=== PATIENT | female | born 1980 | race Caucasian/White ===

== ENCOUNTER 2016-09-25 19:54 | Inpatient (IN) ==
[2016-09-25] MEDS ORDERED: SODIUM CHLORIDE 0.9% 1,000 ML IV STA (20:28)
[2016-09-25] MEDS ORDERED: FLUMAZENIL 1 MG/10 ML VIAL IV STA (20:28)
[2016-09-25] MEDS ORDERED: NALOXONE 0.4 MG/ML VIAL IV PRN (20:28)
--- NOTE | 2016-09-25 20:38 | Emergency Department Note ---
Arrival - Arrival Chief Complaint: Seizure ED Nursing Triage Note: C/O Bystander called EMS for seizure that they witnessed at a store- Upon EMS arrival pt appears to be under the influence and still does at time of arrival here. Pt reports that she has a history of seizures that are controlled by Gabapentin at home. Pt denies any volunary alcohol or drug use, but states she got into a car with a stranger and she was given a energy drink of some kind and then reports that she started "acting crazy" Mode of Arrival: Stretcher Source: EMS Time Seen by Provider: 09/25/16 20:28 - History of Present Illness HPI Narrative: This lethargic poorly responsive white female presents with a history of being observed by bystanders to have a seizure at a convenience store. When the patient regained consciousness to the extent that she could give some history, was able to tell EMS that she had taken a drive with a stranger who had given her an energy drink with a drug in it that made her crazy. The patient at that time denied alcohol or drug use although she does take Suboxone on a regular basis and stated at that time she took gabapentin for seizures. Currently she responds to noxious stimuli and will talk briefly before falling back asleep. Onset (ago): hour(s) (Patient presents approximately 1 hour post incident) Date of Last Menstrual Period: unknown Allergies/Adverse Reactions: Allergies Allergy/AdvReac Type Severity Reaction Status Date / Time morphine Allergy Swelling Verified 01/08/16 14:26 of Lip/Tongue/Throat propofol [From Diprivan] Allergy Swelling Verified 01/08/16 14:26 of Lip/Tongue/Throat Home Medications: Home Medications Medication Instructions Recorded Confirmed Type Buprenorphine HCl/Naloxone HCl 1 each SL BID 09/25/16 09/25/16 History [Suboxone 2 mg-0.5 mg Sl Film] Gabapentin Cap/Tab [Neurontin 800 mg PO TID 09/25/16 09/25/16 History Cap/Tab] Review of System - Review of System ROS unobtainable: due to mental status Medical,Surgical,& Family Hx - Medical History Cardio: History of: Hypertension Psychological: History of: Anxiety Disorders, Bipolar Disorder Neurology: History of: Seizures Gastrointestinal: History of: Hepatitis (Hep C) - Social History Smoking Status: Current every day smoker Frequency of Alcohol Use: None Type of Drug Use: None Exam Physical Examination: GENERAL: Well developed, well nourished white female in no acute distress. HEENT: Normocephalic. No trauma. Moist mucous membranes. EOMI. PERRLA. ENT NML NECK: Supple. No adenopathy. CARDIAC: Regular. No murmurs. Heart rate 110 CHEST: Clear to auscultation. No respiratory distress. O2 sat 99% ABDOMEN: Soft. Nontender. Active bowel sounds. EXTREMITIES: No trauma. Normal ROM. No pedal edema. SKIN: No diaphoresis. No rash. NEURO: Arouses to alertness with noxious stimuli but soon falls back to sleep. No focal deficits. Vital Signs: Vital Signs Temperature 98.6 F 09/25/16 19:54 Pulse Rate 87 09/25/16 20:53 Respiratory Rate 17 09/25/16 20:53 Blood Pressure 132/96 09/25/16 19:54 O2 Sat by Pulse Oximetry 98 09/25/16 20:53 Course - Consultations Consultation #1: Discussed with hospitalist who will admit for further evaluation and treatment. Results - Labs CBC & BMP: 09/25/16 20:15 09/25/16 20:15 Labs: I have reviewed the laboratory noted the slightly depressed potassium and the urine drug screen positive for meth, cannabis, and benzos. - Impressions EKG sinus rhythm at 83. Normal MA interval and QRS duration. Normal ST segments. Normal EKG. - Diagnostic Findings Procedure: Chest x-ray: image reviewed by me, report reviewed by me (Normal chest), CT: image reviewed by me, report reviewed by me (Normal head) Disposition Clinical Impression: Polysubstance abuse, Alleged seizure disorder, Hepatitis C, Suboxone dependent Disposition: Still a Patient Condition: Guarded Time of Disposition: 21:18
[2016-09-25 20:40] LABS: Basophils % 0.4 % (0.0-0.8); Eosinophils # 0.1 10*3/uL (0.0-0.87); Eosinophils % 0.7 % (0.00-10.9); Hematocrit 38.6 VOL% (35.7-47.0); Hemoglobin 13.2 GM/DL (12.0-16.0); Immature Granulocytes % 0.2 %; Immature Granulocytes Absolute 0.02 #; Lymphocytes # 3.1 10*3/uL (1.4-4.0); Lymphocytes % 34.7 % (21.3-54.2); Mean Corpuscular HGB Conc 34.2 GM/DL (32-36); Mean Corpuscular Hemoglobin 30 PG (27-34); Mean Corpuscular Volume 86.7 FL (87-102); Mean Platelet Volume 12.6 FL (9.6-12.0); Monocytes # 0.8 10*3/uL (0.11-0.8); Monocytes % 8.6 % (1.7-12.7); Neutrophils # 4.9 10*3/uL (1.4-7.4); Neutrophils % 55.4 % (38.7-73.9); Platelet Count 143 T/CUMM (130-400); Red Blood Count 4.45 MC/CUMM (3.8-5.5); Red Cell Distribution Width 14.2 % (9.3-17.3); White Blood Count 8.9 T/CUMM (4-12)
[2016-09-25] MEDS ORDERED: ALBUTEROL NEB SOLN 5 MG/ML 20 ML/BOTTLE CONT NEB STA (20:41)
[2016-09-25 20:45] LABS: Apearance,Urine CLEAR (Clear); Bacteria,Urine Occasional /HPF (Few); Bilirubin,Urine Negative (Negative); Blood, Urine Small mg/dL (Negative); Glucose,Urine (UA) Negative (Negative); Hyaline Casts,Urine 1 /LPF (0-3); Ketones,Urine Negative (Negative); Mucus,Urine Occasional /LPF (Occasional); Nitrite,Urine Negative (Negative); Protein,Urine Negative; RBC,Urine 2 /HPF (0-4); Squamous Epithelial Cell,Urine Occasional /HPF (0-10); Urine Color Yellow (Yellow); Urine Specific Gravity 1.017 (1.001-1.035); Urine Urobilinogen < 2.0 EU/DL (0.2-1.0); WBC,Urine 8 /HPF (0-6)
[2016-09-25 20:52] LABS: Barbiturates Screen,Urine Negative (Negative); Benzodiazepines Screen,Urine Positive (Negative); Cannabinoid Screen,Urine Positive (Negative); Opiate Screen,Urine Negative (Negative); Phencyclidine Screen,Urine Negative (Negative)
[2016-09-25 20:56] LABS: Acetaminophen < 2.0 UG/ML (10-30); Salicylate < 2.8 MG/DL (2.8-20)
[2016-09-25 21:00] LABS: Alanine Aminotransferase 27 U/L (13-56); Albumin 3.7 G/DL (3.4-5.0); Alkaline Phosphatase 56 U/L (45-117); Aspartate Amino Transferase 18 U/L (0-37); Blood Urea Nitrogen 13 MG/DL (7-18); Calcium 8.7 MG/DL (8.5-10.1); Glucose 94 MG/DL (74-106); Osmolality,Calculated 280.3 MOS/KG (273-304); Potassium 3.4 MMOL/L (3.5-5.1); Sodium 141 MMOL/L (136-145); Total Protein 6.6 G/DL (6.4-8.3); Troponin I Only < 0.015 NG/ML (0.00-0.045)
[2016-09-25] MEDS ORDERED: NALOXONE 0.4 MG/ML VIAL ONE (21:04)
[2016-09-25] MEDS ORDERED: FLUMAZENIL 0.5 MG/5 ML VIAL IV ONE (21:04)
--- NOTE | 2016-09-25 21:04 | CT Report ---
History: Altered mental status Date: 09/25/2016 Study: CT head without contrast Comparison exam: July 28, [address] sections were obtained through the head without IV contrast. This CT exam was performed using one or more the following dose reduction techniques: Automated exposure control, adjustment of the MA and/or KV according to patient size, or use of iterative reconstruction technique. The ventricles are midline in position without evidence of hydrocephalus. There is no mass or parenchymal hemorrhage. There is no gross CT evidence of acute cortical stroke. There is no extra-axial hematoma. There is no acute abnormality of the bony calvarium. The partially visualized paranasal sinuses and mastoid air cells are clear. Impression: No acute intracranial process. No significant interval change PROCEDURE INTERPRETED AT [facility] DEPARTMENT OF RADIOLOGY Final Report Signed by: Dr. Kenisha Garvey
--- NOTE | 2016-09-25 21:06 | XRay Report ---
History: Overdose Date: 09/25/2016 Study: Chest x-ray AP portable Comparison exam: January 08, 2016 The cardiomediastinal silhouette is unchanged. The pulmonary vasculature is not engorged. The lungs are grossly clear for shallow breath. There is no gross pleural effusion. Osseous structures are unchanged. Impression: Shallow inspiration. No evidence of an acute cardiopulmonary process PROCEDURE INTERPRETED AT [facility] DEPARTMENT OF RADIOLOGY Final Report Signed by: Dr. Kenisha Garvey
[2016-09-25] MEDS ORDERED: ONDANSETRON 4 MG/2 ML VIAL IV PRN (21:22)
[2016-09-25] MEDS ORDERED: DEXTROSE 5% NACL 0.9% 1,000 ML IV SCH (21:30)
[2016-09-25] MEDS ORDERED: ENOXAPARIN 40 MG/0.4 ML SYRINGE SUBCUT SCH (21:30)
[2016-09-25] MEDS ORDERED: POTASSIUM CHLORIDE 20 MEQ TABLET PO ONE (21:47)
--- NOTE | 2016-09-25 21:50 | Hospitalist History & Physical ---
Assessment and Plan (1) Acute drug intoxication with delirium Status: Acute Assessment and plan: The patient is admitted to the hospitalist service for continued observation and monitoring for her acute drug intoxication Consult for [facility] evaluation Home once drug effect has resolved Current Visit: Yes (2) Methamphetamine abuse Status: Acute Current Visit: Yes (3) Marijuana abuse Status: Acute Current Visit: Yes (4) Noncompliance Status: Acute Current Visit: Yes (5) Acute encephalopathy Status: Acute Assessment and plan: Related to drug use including methamphetamines, benzodiazepines, marijuana. Current Visit: Yes History of Present Illness Chief complaint: altered mental status History of present illness: Ms. Funes is a 35 year old female that presents with a history of being observed by bystanders to have a seizure at a convenience store. When the patient regained consciousness to the extent that she could give some history, was able to tell EMS that she had taken a drive with a stranger who had given her an energy drink with a drug in it that made her crazy. The patient at that time denied alcohol or drug use although she does take Suboxone on a regular basis and stated at that time she took gabapentin for seizures. Currently she responds to noxious stimuli and will talk briefly before falling back asleep. She was found to have drug paraphernalia on her person including methamphetamines and marijuana. These have been turned over to the emergent Police Department by the emergency room staff. The patient is reportedly traveling through the area on her way to a . She is noted to have several personal belongings in various bags with her. 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 She was unable to provide any history in the emergency department due to her encephalopathy related to acute drug intoxication. Her urine drug screen was positive for methamphetamines benzodiazepines and marijuana. Home Medications Medication Instructions Recorded Confirmed Type Buprenorphine HCl/Naloxone HCl 1 each SL BID 09/25/16 09/25/16 History [Suboxone 2 mg-0.5 mg Sl Film] Gabapentin Cap/Tab [Neurontin 800 mg PO TID 09/25/16 09/25/16 History Cap/Tab] Allergies Allergy/AdvReac Type Severity Reaction Status Date / Time morphine Allergy Swelling Verified 01/08/16 14:26 of Lip/Tongue/Throat propofol [From Diprivan] Allergy Swelling Verified 01/08/16 14:26 of Lip/Tongue/Throat Medical,Surgical,& Family Hx - Medical History Cardio: History of: Hypertension Psychological: History of: Anxiety Disorders, Bipolar Disorder Neurology: History of: Seizures Gastrointestinal: History of: Hepatitis (Hep C) - Surgical History Additional Surgical History: Unable to obtain surgical history secondary to patient's mental status - Family History Additional Family History: Unable to obtain family history secondary to patient' s mental status - Social History Smoking Status: Current every day smoker Have you smoked in the last 12 months: Yes Frequency of Alcohol Use: Unknown Type of Drug Use: Unknown, Marijuana, Methamphetamine, Prescription Drug Abuse Marital Status: Unknown Functional capacity: independent ambulation ROS unobtainable: due to encephalopathy Exam - Constitutional Vitals: Period Temp Pulse Resp BP Sys/Sandoval Pulse Ox Last 24 Hr 98.6 F-98.6 F 87-113 12-17 132-132/96-96 98-99 Exam: Constitutional System: No distress. No tremulousness. The patient is lethargic and sleepy. She is arousable with noxious and painful stimuli. She does follow commands. Head: Normocephalic, atraumatic. Ears, Nose and Throat System: No pain or tenderness. No epistaxis or discharge Eyes System: Pupils equal, round, and reactive. Extraocular muscles intact. Neck: Supple, without adenopathy, No jugular venous distention. No thyromegaly, neck mass, or prior surgery apparent. Respiratory System: Chest clear to auscultation. Cardiovascular System: Heart with regular rate and rhythm. No murmur. GI System: Abdomen soft, nontender. Normo active bowel sounds present. Musculoskeletal System: limbs with no pedal edema. Full distal pulses. Neurological System: No discernable sensory deficit. No aphasia. Patient is lethargic and difficult to arouse but opens eyes and follows commands Psychiatric System: Unable to assess secondary to patient's mental status Results - Labs CBC & BMP: 09/25/16 20:15 09/25/16 20:15 Lab Results: I have reviewed the past 24 hour labs
[2016-09-26 00:37] VITALS: BP 118/79
--- NOTE | 2016-09-26 02:12 | Discharge Summary ---
Hospital Course - Hospital Course Hospital Course: 36-year-old female admitted to the hospital for acute drug intoxication. Upon arrival to the floor the patient awoke and insisted on leaving AGAINST MEDICAL ADVICE. Her Castillo was removed. She was in possession of drugs at the time of admission that were turned over to the police. She demanded that her drugs be returned. The housecleaner floor called routine police department to notify them of the patient's request and of her intent to leave the hospital. Ultimately the patient left AGAINST MEDICAL ADVICE. She was awake and alert and oriented but aggravated and upset. The patient was not seen by me after arriving to the floor -prior to leaving AMA - Time spent with patient Time with patient DS: Less than 30 minutes Diagnosis - Discharge Diagnosis (1) Acute drug intoxication with delirium Status: Acute (2) Methamphetamine abuse Status: Acute (3) Marijuana abuse Status: Acute (4) Noncompliance Status: Acute (5) Acute encephalopathy Status: Acute Discharge Plan - Discharge Data Disposition: Left Against Medical Advice - Discharge Medications No Action Gabapentin Cap/Tab [Neurontin Cap/Tab] 800 mg PO TID Buprenorphine HCl/Naloxone HCl [Suboxone 2 mg-0.5 mg Sl Film] 1 each SL BID - Follow Up or Referral - Forms/Instructions Exam - Constitutional Vitals: Period Temp Pulse Resp BP Sys/Sandoval Pulse Ox Last 24 Hr 96.4 F-98.6 F 80-113 12-18 100-136/60-96 95-100 Discharge Results Procedures and tests throughout hospitalization: Pending Orders 09/25/16 Urine Culture Routine 09/26/16 04:00 Comprehensive Metabolic Panel IN AM Magnesium IN AM Labs on day of discharge: Labs from last 24 hours 09/25/16 09/25/16 09/25/16 20:15 20:15 20:15 WBC RBC Hgb Hct MCV MCH MCHC RDW Plt Count MPV Neut % (Auto) Lymph % (Auto) [place] % (Auto) Eos % (Auto) Baso % (Auto) Neut # (Auto) Lymph # (Auto) [place] # (Auto) Eos # (Auto) Baso # (Auto) Immature Gran % Nucleated RBC % Immature Gran # Nucleated RBCs # INR 1.0 PT Patient/Control Mix 11.0 Sodium Potassium Chloride Carbon Dioxide Anion Gap BUN Creatinine GFR Calculation BUN/Creatinine Ratio Glucose Calculated Osmolality Calcium Total Bilirubin AST ALT Alkaline Phosphatase Total Creatine Kinase CK-MB (CK-2) Troponin I Total Protein Albumin Globulin Albumin/Globulin Ratio Urine Color Urine Appearance Urine pH Ur Specific [place] Urine Protein Urine Glucose (UA) Urine Ketones Urine Blood Urine Nitrate Urine Bilirubin Urine Urobilinogen Urine Leukocytes Urine RBC Urine WBC Ur Squamous Epith Cells Urine Bacteria Hyaline Casts Urine Mucus Ur Culture Indicated? Salicylates < 2.8 L Urine Opiates Screen Negative Acetaminophen < 2.0 L Ur Barbiturates Screen Negative Ur Phencyclidine Scrn Negative U Amphetamine/Methamph Positive H U Benzodiazepines Scrn Positive H U Cocaine Metab Screen Negative U Cannabinoids Screen Positive H Serum Alcohol 09/25/16 09/25/16 09/25/16 20:15 20:15 20:15 WBC 8.9 RBC 4.45 Hgb 13.2 Hct 38.6 MCV 86.7 L MCH 30 MCHC 34.2 RDW 14.2 Plt Count 143 MPV 12.6 H Neut % (Auto) 55.4 Lymph % (Auto) 34.7 [place] % (Auto) 8.6 Eos % (Auto) 0.7 Baso % (Auto) 0.4 Neut # (Auto) 4.9 Lymph # (Auto) 3.1 [place] # (Auto) 0.8 Eos # (Auto) 0.1 Baso # (Auto) 0.0 Immature Gran % 0.2 Nucleated RBC % 0.0 Immature Gran # 0.02 Nucleated RBCs # 0.00 INR PT Patient/Control Mix Sodium 141 Potassium 3.4 L Chloride 105 Carbon Dioxide 26 Anion Gap 13.4 BUN 13 Creatinine 0.70 GFR Calculation 118 BUN/Creatinine Ratio 18.00 Glucose 94 Calculated Osmolality 280.3 Calcium 8.7 Total Bilirubin 0.70 AST 18 ALT 27 Alkaline Phosphatase 56 Total Creatine Kinase 110 CK-MB (CK-2) < 1.0 Troponin I < 0.015 Total Protein 6.6 Albumin 3.7 Globulin 2.9 Albumin/Globulin Ratio 1.2 Urine Color Yellow Urine Appearance Clear Urine pH 5.0 Ur Specific [place] 1.017 Urine Protein Negative Urine Glucose (UA) Negative Urine Ketones Negative Urine Blood Small Urine Nitrate Negative Urine Bilirubin Negative Urine Urobilinogen < 2.0 H Urine Leukocytes Trace Urine RBC 2 Urine WBC 8 Ur Squamous Epith Cells Occasional Urine Bacteria Occasional Hyaline Casts 1 Urine Mucus Occasional Ur Culture Indicated? Results to follow Salicylates Urine Opiates Screen Acetaminophen Ur Barbiturates Screen Ur Phencyclidine Scrn U Amphetamine/Methamph U Benzodiazepines Scrn U Cocaine Metab Screen U Cannabinoids Screen Serum Alcohol < 15 L DS: Provider Date of admission: 09/25/16 21:22 Primary care physician: Marnie Padron MD Attending physician on admission: Carlos Summers MD Consults: 09/25/16 21:25 Consult to Case Mgmt/Social Srvs [CONS] Routine Reason for Case Mgmt/Social Srvs: Discharge Planning Consult Comment: [facility] referral Discharging clinician: Carlos Summers MD Expected date of discharge: 09/26/16
--- NOTE | 2016-09-26 02:40 | EKG Report ---
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
[2016-09-26] MEDS ORDERED: PANTOPRAZOLE 40 MG TABLET PO SCH (09:00)
[2016-09-26] MEDS ORDERED: GABAPENTIN 400 MG CAPSULE PO SCH (09:00)
== END 2016-09-26 00:20 | disposition left against medical advice (07) | DRG 894 ==
LOC: EDUNIT# → EDBD → N.ED 19:54 → N.EDINP 21:22 → N.2E 22:51
PROVIDERS: ADMIT Family Medicine; ATTEND Family Medicine